=== PATIENT | female | born 1975 | race African-American/Black ===

== ENCOUNTER 2017-07-12 20:44 | Emergency (ER) | payer MEDICAID ==
[~2017-07-12] VITALS: Ht 157.5 cm; Wt 122.5 kg
[~2017-07-12 20:44] MED LIST: ALBUTEROL SULF8.5 GM INH; IBUPROFEN200 M3 PO; NORCO 5-325 TA1 EACH ORAL; PREDNISONE20 MG ORAL; SINGULAIR10 MG ORAL; STOOL SOFTENER50 M1 PO; ZITHROMAX250 MG ORAL
[2017-07-12 21:10] VITALS: BP 154/98
[2017-07-12 21:20] VITALS: BP 148/88
--- NOTE | 2017-07-12 21:24 | Emergency Room Report ---
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 She has had a spontaneous vaginal delivery at [facility] a week ago. She had some fluid retention from her . Blood pressure was high also. She is currently taking labetalol and Lasix 20 mg every other day. She was just released a week ago. Said she had an echocardiogram of her heart and was told was fine and was discharged after 3 days in the hospital. She went back to [facility] 2 days ago because of fluid retention. They then placed on Lasix 20 mg every other day. Blood work was fine. Chest x-ray was normal per patient. She came back because the Lasix is not working. She still have fluid retention. Worse when she walks. No fever chills but no shortness of breath. Denies any other complaint. Allergies: Coded Allergies: No Known Allergies (Unverified , 11/27/14) Patient History Past Medical History: see triage record, old chart reviewed, HTN Past Surgical History: other Pertinent Family History: none Social History: Denies: smoking Last Menstrual Period: Delivered baby 1 week ago Now: No Immunizations: other Reviewed Nursing Documentation: PMH: Agreed, PSxH: Agreed Nursing Documentation-PMH Past Medical History: No History, Except For Hx Cardiac Problems: Yes - CHF Hx Hypertension: Yes Hx COPD: No - Bronchitis Hx Cancer: No Hx Gastrointestinal Problems: No Review of Systems Eye: Denies: eye pain, blurred vision ENT: Denies: ear pain, nose congestion, throat swelling Respiratory: Denies: cough, shortness of breath Cardiovascular: Denies: chest pain, palpitations Gastrointestinal: Denies: abdominal pain, diarrhea, nausea, vomiting Musculoskeletal: Reports: other - Edema, Denies: back pain, joint pain Skin: Denies: rash Neurological: Denies: headache, numbness Endocrine: Denies: increased thirst, increased urine Hematologic/Lymphatic: Denies: easy bruising All Other Systems: negative except mentioned in HPI Physical Exam Vital Signs Date Time Temp Pulse Resp B/P (MAP) Pulse Ox O2 Delivery O2 Flow Rate FiO2 07/12/17 21:02 98.7 98 17 151/98 97 Room Air 98.8 vitals with high blood pressure Sp02 EP Interpretation: reviewed, normal General Appearance: well appearing, no apparent distress, alert, obese Head: normocephalic, atraumatic Eyes: bilateral eye PERRL, bilateral eye EOMI ENT: hearing grossly normal, normal pharynx Neck: full range of motion, supple, no meningismus Respiratory: chest non-tender, lungs clear, normal breath sounds Cardiovascular #1: regular rate, rhythm, no murmur Gastrointestinal: normal bowel sounds, non tender, no mass, no organomegaly, no bruit, non-distended Musculoskeletal: back normal, gait/station normal, normal range of motion, swelling - 2+ edema Psychiatric: mood/affect normal Skin: warm/dry Medical Decision Making Diagnostic Impression: Primary Impression: Peripheral edema ER Course Patient presents with peripheral edema. Clinically no evidence of CHF. I will order blood work and IV Lasix. Patient eloped without staff now. We checked the waiting room and outside and there's nobody care. No one in the bathroom. Patient again eloped. Last Vital Signs Date Time Temp Pulse Resp B/P (MAP) Pulse Ox O2 Delivery O2 Flow Rate FiO2 07/12/17 21:02 98.7 98 17 151/98 97 Room Air 98.8 Status: unchanged Disposition: ELOPED Condition: Stable YOHANA BLANCA M.D. Jul 12, 2017 21:23
== END 2017-07-12 21:50 | disposition left against medical advice (07) ==
LOC: MERGE 21:30 → EMR 21:30
DX: O90.89 Other complications of the puerperium, not elsewhere classified (principal); R60.9 Edema, unspecified
CPT/HCPCS: 99281

== ENCOUNTER 2017-07-14 02:03 | Inpatient (IN) | payer MEDICAID ==
[~2017-07-14] VITALS: Ht 157.5 cm; Wt 117.2 kg
[2017-07-14] VITALS (10 sets, daily range): BP systolic 108–160; BP diastolic 71–113
--- NOTE | 2017-07-14 02:27 | Emergency Room Report ---
History of Present Illness General Chief Complaint: General Complaint Source: Patient Present Illness HPI 42YOF walked in with chief complaint of irregular HR, worse when she lies on left side. Associated with leg swelling as well. Denies chest pain, SOB, palpitations Just "feels funny." States she had delivery 1 week ago and was told to take lasix every other day for ? cardiomyopathy. She took lasix yesterday but states "its not working because Im not peeing enough" but also endorses "my mouth is dry." Patient was here last night but eloped before workup could be done Per Dr Leal's note, she had had normal blood work and CXR at [facility] 2 days ago. Allergies: Coded Allergies: No Known Allergies (Unverified , 11/27/14) Patient History Past Medical History: other - see HPI Past Surgical History: none Pertinent Family History: none Social History: Denies: smoking, alcohol use, drug use Last Menstrual Period: recently gave Now: No Immunizations: UTD Reviewed Nursing Documentation: PMH: Agreed, PSxH: Agreed Nursing Documentation-PMH Hx Cardiac Problems: Yes - CHF Hx Hypertension: Yes Hx COPD: No - Bronchitis Review of Systems All Other Systems: negative except mentioned in HPI Physical Exam Vital Signs Date Time Temp Pulse Resp B/P (MAP) Pulse Ox O2 Delivery O2 Flow Rate FiO2 07/14/17 02:05 98.5 107 18 150/90 9 98.4 Sp02 EP Interpretation: reviewed, normal General Appearance: normal inspection, well appearing, no apparent distress, alert, GCS 15, non-toxic, obese Head: normocephalic, atraumatic Eyes: bilateral eye PERRL, bilateral eye EOMI ENT: normal ENT inspection, hearing grossly normal, normal pharynx, no angioedema, normal voice, TMs + canals normal, uvula midline, moist mucus membranes Neck: normal inspection, full range of motion, supple, thyroid normal, no meningismus, no bony tend Respiratory: normal inspection, lungs clear, normal breath sounds, no rhonchi, no respiratory distress, no retraction, no accessory muscle use, no wheezing, speaking full sentences Cardiovascular #1: regular rate, rhythm, no edema, no JVD, normal capillary refill Gastrointestinal: normal inspection, normal bowel sounds, non tender, soft, no mass, no peritonitis, non-distended, no guarding, no hernia, no pulsatile mass Genitourinary: no CVA tenderness Musculoskeletal: normal inspection, back normal, normal range of motion, no calf tenderness, pelvis stable, Craig's Sign negative, other - +1 pitting edema L>R Neurologic: normal inspection, alert, oriented x3, responsive, obgyn specialist III-XII nml as tested, motor strength/tone normal, cerebellar normal, normal gait, speech normal Psychiatric: normal inspection, judgement/insight normal, mood/affect normal, no suicidal/homicidal ideation, no delusions Skin: normal inspection, normal color, no rash Lymphatic: normal inspection, no adenopathy Medical Decision Making Diagnostic Impression: Primary Impression: Peripheral edema Additional Impressions: Pre-eclampsia, UTI (urinary tract infection) Qualified Codes: N30.01 - Acute cystitis with hematuria ER Course VSS with SBP>150 and DBP>90 4+ protein, elevated LFTs, AST/ALT 86/125 per uptodate, meets criteria for pre-eclampsia Was given labetolol 20mg with improvement in BP to 130/89 No seizures, no AMS or headache Tele admit to Dr Reynolds as per insurance Dr Alison douglas, endorsed to Dr Guidry at 428am for tele admit Abs given for UTI EKG Diagnostic Results Rate: normal Rhythm: NSR ST Segments: no acute changes ASA given to the pt in ED: No Rhythm Strip Diag. Results EP Interpretation: yes Rate: 90 Rhythm: NSR, no PVC's, no ectopy Last Vital Signs Date Time Temp Pulse Resp B/P (MAP) Pulse Ox O2 Delivery O2 Flow Rate FiO2 07/14/17 02:05 98.5 107 18 150/90 9 98.4 Status: improved Disposition: ADMITTED INPATIENT Condition: Serious MANAN OTTO M.D. Jul 14, 2017 02:27
[2017-07-14 02:51] LABS: BASOPHILS % (AUTO) 0.5 % (0.0-2.0); EOSINOPHILS % (AUTO) 0.6 % (0.0-3.0); HEMATOCRIT 38.6 % (37.0-47.0); HEMOGLOBIN 12.2 G/DL (12.0-16.0); LYMPHOCYTES % (AUTO) 33.3 % (20.0-45.0); MEAN CORPUSCULAR VOLUME 90 FL (80-99); MONOCYTES % (AUTO) 5.9 % (1.0-10.0); NEUTROPHILS % (AUTO) 59.8 % (45.0-75.0); PLATELET COUNT 208 K/UL (150-450); RED BLOOD COUNT 4.26 M/UL (4.20-5.40); RED CELL DISTRIBUTION WIDTH 16.1 % (11.6-14.8); WHITE BLOOD COUNT 5.1 K/UL (4.8-10.8)
[2017-07-14 03:01] LABS: ANION GAP 6 mmol/L (5-15); BLOOD UREA NITROGEN 17 mg/dL (7-18); CALCIUM 7.8 MG/DL (8.5-10.1); CARBON DIOXIDE 27 MMOL/L (21-32); CHLORIDE 106 MMOL/L (98-107); POTASSIUM 3.5 MMOL/L (3.5-5.1); SODIUM 139 MMOL/L (136-145)
[2017-07-14 03:05] LABS: ALANINE AMINOTRANSFERASE 125 U/L (12-78); ALBUMIN 1.9 G/DL (3.4-5.0); ALBUMIN/GLOBULIN RATIO 0.4 (1.0-2.7); ALKALINE PHOSPHATASE 113 U/L (46-116); ASPARTATE AMINO TRANSFERASE 86 U/L (15-37); BILIRUBIN, URINE NEGATIVE (NEGATIVE); BILIRUBIN,TOTAL 0.2 MG/DL (0.2-1.0); GLUCOSE, URINE (UA) NEGATIVE (NEGATIVE); KETONES,URINE NEGATIVE (NEGATIVE); LEUKOCYTE ESTERASE ,URINE 2+ (NEGATIVE); NITRITE,URINE POSITIVE (NEGATIVE); PH,URINE 6.5 (4.5-8.0); PROTEIN,URINE 4+ (NEGATIVE); UROBILINOGEN,URINE NORMAL MG/DL (0.0-1.0)
[2017-07-14 03:19] LABS: COLOR,URINE YELLOW
[2017-07-14 03:20] LABS: APPEARANCE,URINE CLOUDY
[2017-07-14] MEDS ORDERED: Labetalol 5mg/ml 20ml vial IV ONE (03:45)
[2017-07-14] MEDS ORDERED: Piperacillin/Tazobactam 3.375 GM in NS 110 ML IVPB ONE (04:30)
[2017-07-14] MEDS ORDERED: Zosyn 3.375gm inj ONE (04:31)
[2017-07-14] MEDS ORDERED: Labetalol 5mg/ml 20ml vial IV PRN (05:30)
[2017-07-14] MEDS ORDERED: Zolpidem 5mg tab ORAL PRN (05:30)
[2017-07-14] MEDS ORDERED: Acetaminophen 650 MG SUPP RECTAL PRN ×2 (05:30)
[2017-07-14] MEDS ORDERED: Miralax 17gm pkt ORAL PRN (05:30)
[2017-07-14] MEDS ORDERED: FUROSEMIDE20 M1 ORAL (09:50)
[2017-07-14] MEDS ORDERED: FERROUS SULFAT325 MG PO (09:50)
[2017-07-14] MEDS ORDERED: PROAIR HFA8.5 GM (09:50)
[2017-07-14] MEDS ORDERED: LABETALOL HCL200 MG PO (09:50)
[2017-07-14] MEDS ORDERED: PRENATAL VITAM1 EAC3 PO (09:50)
[2017-07-14] MEDS: cefTRIAXone 1 GM in NS 55 ML IVPB SCH (11:35)
[2017-07-14] MEDS: Montelukast 10mg tablet ORAL SCH (13:04)
[2017-07-14] MEDS: Labetalol 200mg tab ORAL SCH ×2 (13:10→17:27)
[2017-07-14 13:33] LABS: ALANINE AMINOTRANSFERASE 117 U/L (12-78); ALBUMIN 1.8 G/DL (3.4-5.0); ALKALINE PHOSPHATASE 104 U/L (46-116); ASPARTATE AMINO TRANSFERASE 73 U/L (15-37); BILIRUBIN,DIRECT < 0.1 MG/DL (0.0-0.3); BILIRUBIN,TOTAL 0.2 MG/DL (0.2-1.0)
[2017-07-14] MEDS: Azithromycin 500 MG in D5W 275 ML IV SCH (16:19)
--- NOTE | 2017-07-14 19:23 | Cardiology Progress Note ---
Assessment/Plan Assessment/Plan [id number] agree with diuretic and labatolol for now need to exclude post cm may need hydralazine avoid nsaids keep in mind she will b breast feeding abn lf noted ut bili and plt are normal not meet criterial for hellp Objective Last 24 Hour Vital Signs Date Time Temp Pulse Resp B/P (MAP) Pulse Ox O2 Delivery O2 Flow Rate FiO2 07/14/17 17:27 84 108/71 07/14/17 16:00 86 07/14/17 16:00 98.2 84 18 108/71 99 Room Air 07/14/17 13:10 96 147/104 07/14/17 12:00 96.4 93 18 147/104 99 Room Air 07/14/17 12:00 96 07/14/17 09:08 94 07/14/17 08:45 97.7 88 20 145/101 99 Room Air 07/14/17 08:40 98.3 86 20 139/85 100 Room Air 98.3 07/14/17 07:30 98.3 86 20 139/85 100 Room Air 98.3 07/14/17 06:20 98.2 91 14 148/113 100 98.2 07/14/17 05:25 98.1 95 14 137/99 99 98.1 07/14/17 04:25 98.4 98 16 130/89 100 98.4 07/14/17 03:41 88 155/97 07/14/17 03:30 98.6 97 16 160/98 99 98.6 07/14/17 02:35 98.4 102 18 150/90 99 98.4 07/14/17 02:05 98.5 107 18 150/90 98 98.4 Intake and Output 07/13/17 07/14/17 19:00 07:00 Intake Total 110 ml Balance 110 ml IV Total 110 ml # Voids 3 # Bowel Movements 2 Laboratory Tests Test 07/14/17 02:35 07/14/17 12:20 White Blood Count 5.1 K/UL (4.8-10.8) Red Blood Count 4.26 M/UL (4.20-5.40) Hemoglobin 12.2 G/DL (12.0-16.0) Hematocrit 38.6 % (37.0-47.0) Mean Corpuscular Volume 90 FL (80-99) Mean Corpuscular Hemoglobin 28.7 PG (27.0-31.0) Mean Corpuscular Hemoglobin Concent 31.7 G/DL (32.0-36.0) L Red Cell Distribution Width 16.1 % (11.6-14.8) H Platelet Count 208 K/UL (150-450) Mean Platelet Volume 7.3 FL (6.5-10.1) Neutrophils (%) (Auto) 59.8 % (45.0-75.0) Lymphocytes (%) (Auto) 33.3 % (20.0-45.0) Monocytes (%) (Auto) 5.9 % (1.0-10.0) Eosinophils (%) (Auto) 0.6 % (0.0-3.0) Basophils (%) (Auto) 0.5 % (0.0-2.0) Urine Color Yellow Urine Appearance Cloudy Urine pH 6.5 (4.5-8.0) Urine Specific [address] 1.015 (1.005-1.035) Urine Protein 4+ (NEGATIVE) H Urine Glucose (UA) Negative (NEGATIVE) Urine Ketones Negative (NEGATIVE) Urine Occult Blood 5+ (NEGATIVE) H Urine Nitrite Positive (NEGATIVE) H Urine Bilirubin Negative (NEGATIVE) Urine Urobilinogen Normal MG/DL (0.0-1.0) Urine Leukocyte Esterase 2+ (NEGATIVE) H Urine RBC Tntc /HPF (0 - 2) H Urine WBC 60-80 /HPF (0 - 2) H Urine Squamous Epithelial Cells Few /LPF (NONE/OCC) Urine Bacteria Many /HPF (NONE) H Sodium Level 139 MMOL/L (136-145) Potassium Level 3.5 MMOL/L (3.5-5.1) Chloride Level 106 MMOL/L (98-107) Carbon Dioxide Level 27 MMOL/L (21-32) Anion Gap 6 mmol/L (5-15) Blood Urea Nitrogen 17 mg/dL (7-18) Creatinine 1.0 MG/DL (0.55-1.30) Estimat Glomerular Filtration Rate > 60 mL/min (>60) Glucose Level 132 MG/DL (74-106) H Calcium Level 7.8 MG/DL (8.5-10.1) L Total Bilirubin 0.2 MG/DL (0.2-1.0) 0.2 MG/DL (0.2-1.0) Aspartate Amino Transf (AST/SGOT) 86 U/L (15-37) H 73 U/L (15-37) H Alanine Aminotransferase (ALT/SGPT) 125 U/L (12-78) H 117 U/L (12-78) H Alkaline Phosphatase 113 U/L (46-116) 104 U/L (46-116) Troponin I 0.012 ng/mL (0.000-0.056) 0.008 ng/mL (0.000-0.056) Total Protein 6.3 G/DL (6.4-8.2) L 6.1 G/DL (6.4-8.2) L Albumin 1.9 G/DL (3.4-5.0) L 1.8 G/DL (3.4-5.0) L Globulin 4.4 g/dL Albumin/Globulin Ratio 0.4 (1.0-2.7) L Lipase 211 U/L (73-393) Direct Bilirubin < 0.1 MG/DL (0.0-0.3) Pro-B-Type Natriuretic Peptide 1331 pg/mL (0-125) H Thyroid Stimulating Hormone (TSH) 0.890 uiU/mL (0.358-3.740) BROOK PARKER Jul 14, 2017 19:23
--- NOTE | 2017-07-14 23:00 | Consultation ---
DATE OF CONSULTATION: 07/14/2017 INFECTIOUS DISEASES CONSULTATION CONSULTING PHYSICIAN: Marcello Camarillo M.D. REFERRING PHYSICIANS: 1. Chago Reynolds M.D. 2. Brea Felix M.D. REASON FOR CONSULTATION: Evaluation of UTI, possible pneumonia, antibiotic management. HISTORY OF PRESENT ILLNESS: The patient is a 42-year-old female, who had a vaginal delivery on 07/04/2017. The patient was admitted here with the chief complaint of lower abdominal pain, post preeclampsia. Infectious Diseases consultation has been requested for evaluation of the patient for cough and dysuria. PAST MEDICAL HISTORY: 1. Hypertension. 2. Asthma. 3. Obesity. 4. Fibromyalgia. 5. Depression/anxiety. 6. ? cardiomyopathy. MEDICATIONS: Rocephin. ALLERGIES: No known drug allergies. SOCIAL HISTORY: The patient lives with the family. FAMILY HISTORY: Not contributing. REVIEW OF SYSTEMS: HEENT: No recent change in vision or hearing. PULMONARY: Cough with sputum production ( ). CARDIOVASCULAR: No chest pain. ABDOMEN: The patient has left lower pelvic pain. MUSCULOSKELETAL: Tenderness, also has pain. GENITOURINARY: As mentioned above. PHYSICAL EXAMINATION: VITAL SIGNS: Temperature 98 degrees, pulse 86, respiratory rate 18, and blood pressure 144/101. HEENT: No pale conjunctivae. No icterus. NECK: No lymphadenopathy. CHEST: Clear. HEART: S1 and S2. ABDOMEN: Soft, obese, mild tenderness in the suprapubic area towards the left. MUSCULOSKELETAL: No pain in extremity. NEUROLOGIC: Awake and alert. LABORATORY AND DIAGNOSTIC DATA: White blood cells 5.1, hemoglobin 12, and platelets 208. UA shows too numerous to count red blood cells, 60-80 white blood cells. BUN 17 and creatinine 1. AST 86, ALT 125, and alkaline phosphatase 113. Urine culture is pending. ASSESSMENT: The patient is a 42-year-old female with; 1. Community-acquired pneumonia/bronchitis. The patient has sputum production and cough, rule out flu. 2. Dysuria, possible urinary tract infection, history of Fiore catheter placement. 3. Hematuria probably due to vaginal bleed. 4. Increase in liver function tests due to preeclampsia. 5. Left pelvic pain. We will order a CT of the pelvis for further evaluation and rule out possibility of ovarian abscess. 6. Fiore catheter placement. 7. Hematuria due to vaginal bleed. 8. Abnormal liver function tests due to preeclampsia. 9. Left pelvic pain, rule out abscess. PLAN: 1. We will continue the patient on Rocephin for urinary tract infection, add Zithromax for bronchitis. 2. Flu screening. 3. Blood culture and urine culture. 4. CT of pelvis with contrast. 5. Based on the patient's clinical course and laboratories, we will do further recommendations. Thank you for this consultation. I will follow the patient with you during the hospitalization. Marcello Camarillo M.D. DR: SYLVESTER JOB#: [id number] CC:
--- NOTE | 2017-07-14 23:18 | History and Physical ---
History of Present Illness General Date patient seen: Jul 14, 2017 Time patient seen: 10:00 Reason for Hospitalization: CHF, HTN Present Illness HPI 42y/o female with pmh of HTN, pre-eclampsia, recent abt 10 days ago at [place] who presents with SOB, BLE swelling, palpitations. Pt states she was diagnosed w/ preeclampsia prior to her deliver. She said after delivery she had worsening of BPs, leg swelling, SOB. She was diagnosed w/ CHF. She was recently at outside hospital and was treated with diuretics and discharged. Pt cont to c/ o worsening b/l leg swelling, SOB, palpitations. Denies chest pain, f/c, n/v, d/ c, abd pain, dysuria. She has been on lasix every other day but feels it is not working. Denies PND, orthopnea. Allergies: Coded Allergies: No Known Allergies (Unverified , 08/20/14) Medication History Scheduled Azithromycin* (Zithromax*), 250 MG ORAL DAILY Cephalexin* (Keflex*), 500 MG ORAL EVERY 6 HOURS Ferrous Sulfate* (Ferrous Sulfate*), 325 MG PO DAILY, (Reported) Furosemide* (Lasix*), 20 MG ORAL DAILY Hydralazine Hcl* (Hydralazine Hcl*), 25 MG ORAL Q6HR Montelukast Sodium* (Singulair*), 10 MG ORAL DAILY Montelukast Sodium* (Singulair*), Unknown Dose ORAL DAILY, (Reported) Vit/Iron Fumarate/Fa ( Vitamins Tablet), 1 TAB PO DAILY, ( Reported) Scheduled PRN Albuterol Sulfate* (Albuterol Sulfate Mdi*), 2 PUFF INH Q4H PRN for Shortness of Breath Albuterol Sulfate* (Albuterol Sulfate Mdi*), 2 PUFF INH Q6H PRN for Shortness of Breath, (Reported) Hydrocodone Bit/Acetaminophen 5-325* ([place] 5-325*), 1 TAB ORAL Q6H PRN for For Pain Miscellaneous Medications Albuterol Sulfate* (Proair Hfa*), (Reported) Docusate Sodium (Stool Softener), Unknown Dose PO, (Reported) Ibuprofen (Ibuprofen), Unknown Dose PO, (Reported) Patient History History Provided By: Patient, Medical Record Healthcare decision maker Resuscitation status Full Code Advanced Directive on File Past Medical/Surgical History Past Medical/Surgical History: (1) Preeclampsia (2) HTN (hypertension) Family History Family History: Patient reports no known family medical history. Social History Social History: (1) No significant social history Review of Systems Constitutional: Reports: no symptoms Eye: Reports: no symptoms ENT: Reports: no symptoms Respiratory: Reports: cough, shortness of breath Cardiovascular: Reports: palpitations Gastrointestinal: Reports: no symptoms Genitourinary: Reports: no symptoms Musculoskeletal: Reports: no symptoms Skin: Reports: no symptoms Psychiatric: Reports: no symptoms Neurological: Reports: no symptoms Endocrine: Reports: no symptoms Hematologic/Lymphatic: Reports: no symptoms Physical Exam Physical Exam Narrative General: alert, cooperative, no distress, appears stated age, obese Head: normocephalic, without obvious abnormality, atraumatic Eyes: conjunctivae/corneas clear. PERRL, EOM's intact Throat: lips, mucosa, and tongue normal. MMM Neck: supple, symmetrical, trachea midline, and +JVD Lungs: mild bibasilar crackles Heart: regular rate and rhythm, S1, S2 normal, no murmur, click, rub or gallop Abdomen: soft, non-tender, non-distended, bowel sounds normal; Extremities: extremities normal, atraumatic, no cyanosis, 1-2+ pitting edema to BLE knees Pulses: 2+ and symmetric Skin: skin color, texture, turgor normal; no rashes or lesions Neurologic: grossly normal, no focal deficits Last 24 Hour Vital Signs Date Time Temp Pulse Resp B/P (MAP) Pulse Ox O2 Delivery O2 Flow Rate FiO2 07/14/17 20:00 97.6 100 19 132/92 94 Room Air 07/14/17 20:00 94 07/14/17 17:27 84 108/71 07/14/17 16:00 86 07/14/17 16:00 98.2 84 18 108/71 99 Room Air 07/14/17 13:10 96 147/104 07/14/17 12:00 96.4 93 18 147/104 99 Room Air 07/14/17 12:00 96 07/14/17 09:08 94 07/14/17 08:45 97.7 88 20 145/101 99 Room Air 07/14/17 08:40 98.3 86 20 139/85 100 Room Air 98.3 07/14/17 07:30 98.3 86 20 139/85 100 Room Air 98.3 07/14/17 06:20 98.2 91 14 148/113 100 98.2 07/14/17 05:25 98.1 95 14 137/99 99 98.1 07/14/17 04:25 98.4 98 16 130/89 100 98.4 07/14/17 03:41 88 155/97 07/14/17 03:30 98.6 97 16 160/98 99 98.6 07/14/17 02:35 98.4 102 18 150/90 99 98.4 07/14/17 02:05 98.5 107 18 150/90 98 98.4 Intake and Output 07/13/17 07/14/17 19:00 07:00 Intake Total 110 ml Balance 110 ml IV Total 110 ml # Voids 3 # Bowel Movements 2 Laboratory Tests Test 07/14/17 02:35 07/14/17 12:20 White Blood Count 5.1 K/UL (4.8-10.8) Red Blood Count 4.26 M/UL (4.20-5.40) Hemoglobin 12.2 G/DL (12.0-16.0) Hematocrit 38.6 % (37.0-47.0) Mean Corpuscular Volume 90 FL (80-99) Mean Corpuscular Hemoglobin 28.7 PG (27.0-31.0) Mean Corpuscular Hemoglobin Concent 31.7 G/DL (32.0-36.0) L Red Cell Distribution Width 16.1 % (11.6-14.8) H Platelet Count 208 K/UL (150-450) Mean Platelet Volume 7.3 FL (6.5-10.1) Neutrophils (%) (Auto) 59.8 % (45.0-75.0) Lymphocytes (%) (Auto) 33.3 % (20.0-45.0) Monocytes (%) (Auto) 5.9 % (1.0-10.0) Eosinophils (%) (Auto) 0.6 % (0.0-3.0) Basophils (%) (Auto) 0.5 % (0.0-2.0) Urine Color Yellow Urine Appearance Cloudy Urine pH 6.5 (4.5-8.0) Urine Specific [place] 1.015 (1.005-1.035) Urine Protein 4+ (NEGATIVE) H Urine Glucose (UA) Negative (NEGATIVE) Urine Ketones Negative (NEGATIVE) Urine Occult Blood 5+ (NEGATIVE) H Urine Nitrite Positive (NEGATIVE) H Urine Bilirubin Negative (NEGATIVE) Urine Urobilinogen Normal MG/DL (0.0-1.0) Urine Leukocyte Esterase 2+ (NEGATIVE) H Urine RBC Tntc /HPF (0 - 2) H Urine WBC 60-80 /HPF (0 - 2) H Urine Squamous Epithelial Cells Few /LPF (NONE/OCC) Urine Bacteria Many /HPF (NONE) H Sodium Level 139 MMOL/L (136-145) Potassium Level 3.5 MMOL/L (3.5-5.1) Chloride Level 106 MMOL/L (98-107) Carbon Dioxide Level 27 MMOL/L (21-32) Anion Gap 6 mmol/L (5-15) Blood Urea Nitrogen 17 mg/dL (7-18) Creatinine 1.0 MG/DL (0.55-1.30) Estimat Glomerular Filtration Rate > 60 mL/min (>60) Glucose Level 132 MG/DL (74-106) H Calcium Level 7.8 MG/DL (8.5-10.1) L Total Bilirubin 0.2 MG/DL (0.2-1.0) 0.2 MG/DL (0.2-1.0) Aspartate Amino Transf (AST/SGOT) 86 U/L (15-37) H 73 U/L (15-37) H Alanine Aminotransferase (ALT/SGPT) 125 U/L (12-78) H 117 U/L (12-78) H Alkaline Phosphatase 113 U/L (46-116) 104 U/L (46-116) Troponin I 0.012 ng/mL (0.000-0.056) 0.008 ng/mL (0.000-0.056) Total Protein 6.3 G/DL (6.4-8.2) L 6.1 G/DL (6.4-8.2) L Albumin 1.9 G/DL (3.4-5.0) L 1.8 G/DL (3.4-5.0) L Globulin 4.4 g/dL Albumin/Globulin Ratio 0.4 (1.0-2.7) L Lipase 211 U/L (73-393) Direct Bilirubin < 0.1 MG/DL (0.0-0.3) Pro-B-Type Natriuretic Peptide 1331 pg/mL (0-125) H Thyroid Stimulating Hormone (TSH) 0.890 uiU/mL (0.358-3.740) Height (Feet): 5 Height (Inches): 2.00 Weight (Pounds): 270 Medications Current Medications Medications (Trade) Dose Ordered Sig/Quinn Route PRN Reason Start Time Stop Time Status Last Admin Dose Admin Acetaminophen (Tylenol) 650 mg Q4H PRN ORAL Mild Pain (Pain Scale 1-3) 07/14/17 05:30 08/13/17 05:29 07/14/17 11:55 Acetaminophen (Tylenol) 650 mg Q4H PRN ORAL fever 07/14/17 05:30 08/13/17 05:29 Acetaminophen (Tylenol) 650 mg Q4H PRN RECTAL Mild Pain (Pain Scale 1-3) 07/14/17 05:30 08/13/17 05:29 Acetaminophen (Tylenol) 650 mg Q4H PRN RECTAL fever 07/14/17 05:30 08/13/17 05:29 Azithromycin 500 mg/Dextrose 275 ml @ 275 mls/hr Q24HRS IV 07/14/17 13:00 07/20/17 13:59 07/14/17 16:19 Bisacodyl (Dulcolax) 10 mg DAILYPRN PRN RECTAL Constipation 07/14/17 05:30 08/13/17 05:29 Ceftriaxone Sodium 1 gm/ Sodium Chloride 55 ml @ 110 mls/hr Q24H IVPB 07/14/17 06:00 07/21/17 05:59 07/14/17 11:35 Dextrose (Dextrose 50%) STAT PRN IV Hypoglycemia 07/14/17 05:30 08/13/17 05:29 Diphenhydramine HCl (Benadryl) 25 mg Q6H PRN ORAL Itching/Pruritis 07/14/17 05:30 08/13/17 05:29 Ferrous Sulfate (Feosol) 325 mg DAILY ORAL 07/14/17 12:15 08/13/17 12:14 07/14/17 13:10 Furosemide (Lasix) 20 mg ONCE ONCE IV 07/15/17 08:00 07/15/17 08:01 Labetalol HCl (Normodyne) 100 mg Q12H PRN ORAL sbp/dbp greater than 150/90 07/14/17 19:30 08/13/17 19:29 Labetalol HCl (Normodyne) 200 mg BID ORAL 07/14/17 12:15 08/13/17 12:14 07/14/17 13:10 Montelukast Sodium (Singulair) 10 mg DAILY ORAL 07/14/17 12:15 08/13/17 12:14 07/14/17 13:04 Polyethylene Glycol (Miralax) 17 gm DAILYPRN PRN ORAL Constipation 07/14/17 05:30 08/13/17 05:29 Zolpidem Tartrate (Ambien) 5 mg DAILYPRN PRN ORAL Insomnia 07/14/17 05:30 07/21/17 05:29 Assessment/Plan Problem List: (1) cardiomyopathy 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 SNOMED: 26579982 (2) Acute systolic (congestive) heart failure ICD Codes: I50.21 - Acute systolic (congestive) heart failure SNOMED: 95353184, 464309572 (3) HTN (hypertension) ICD Codes: I10 - Essential (primary) hypertension SNOMED: 78757243 Status: stable Assessment/Plan Admit to tele Trend trop/EKG Check TTE Cardiology consulted BP control w/ labetolol Pt is lactating female so caution meds Empiric ceftriaxone for UTI F/u urine culture Strict I/O's, daily weights Monitor lytes closely CHF education FULL CODE DVT ppx: SCDs, HSQ D/w pt, RN, SW/, Cardiology regarding mgmt and dispo Brea Felix M.D. Jul 14, 2017 23:18
[2017-07-15] VITALS: BP 123/74
[2017-07-15 04:00] VITALS: BP 133/91
[2017-07-15] MEDS: cefTRIAXone 1 GM in NS 55 ML IVPB SCH (07:42)
[2017-07-15 08:00] VITALS: BP 138/106
--- NOTE | 2017-07-15 08:25 | Cardiology Report ---
APPROVED REPORT EXAM: Two-dimensional and M-mode echocardiogram with Doppler and color Doppler. INDICATION Hypertension/HCVD M-Mode DIMENSIONS IVSd1.3 (0.7-1.1cm)Left Atrium (MM)4.7 (1.6-4.0cm) LVDd6.0 (3.5-5.6cm)Aortic Root2.5 (2.0-3.7cm) PWd1.1 (0.7-1.1cm)Aortic Cusp Exc.2.2 (1.5-2.0cm) LVDs4.8 (2.5-4.0cm) PWs1.7 cm Mild left ventricular enlargement. Global left ventricular hypokinesia with left ventricular ejection fraction estimated to be 20-25 %. Ischemic cardiomyopathy cannot be excluded. Mild left ventricular hypertrophy. Possible large pleural effusion. Moderate left atrial enlargement. Mild right ventricular enlargement. Right atrial chamber size is within normal limits. Focal aortic valve sclerosis with adequate cusp excursion. Mildly thickened mitral valve leaflets with normal excursion. Mild mitral annulus and aortic root calcification. Normal pulmonic valve structure. Normal tricuspid valve structure. IVC dilated at 2.3 cm with physiologic collapse suggestive of increased RA pressure. A color flow and spectral Doppler study was performed and revealed: No aortic regurgitation. Mild to moderate mitral regurgitation. Mitral inflow indicates pseudo-normal pattern, implying moderately elevated left atrial pressure (Grade II ). Moderate tricuspid regurgitation. Tricuspid systolic velocities suggests peak right ventricular systolic pressure of 54 mmHg, consistent with moderate pulmonary hypertension. Mild pulmonic regurgitation present.
--- NOTE | 2017-07-15 08:33 | Cardiology Report ---
APPROVED REPORT EKG Measurement Heart [id number] Sinus tachycardia Biatrial enlargement Nonspecific ST and T wave abnormality Abnormal ECG
[2017-07-15 09:00] LABS: BASOPHILS % (AUTO) 0.6 % (0.0-2.0); EOSINOPHILS % (AUTO) 0.5 % (0.0-3.0); HEMATOCRIT 37.5 % (37.0-47.0); HEMOGLOBIN 12.1 G/DL (12.0-16.0); LYMPHOCYTES % (AUTO) 27.9 % (20.0-45.0); MEAN CORPUSCULAR VOLUME 91 FL (80-99); MONOCYTES % (AUTO) 6.5 % (1.0-10.0); NEUTROPHILS % (AUTO) 64.5 % (45.0-75.0); PLATELET COUNT 227 K/UL (150-450); RED BLOOD COUNT 4.12 M/UL (4.20-5.40); RED CELL DISTRIBUTION WIDTH 16.6 % (11.6-14.8)
[2017-07-15] MEDS: Montelukast 10mg tablet ORAL SCH (09:09)
[2017-07-15] MEDS: Labetalol 200mg tab ORAL SCH (09:10)
[2017-07-15 09:35] LABS: ALANINE AMINOTRANSFERASE 106 U/L (12-78); ALBUMIN 1.8 G/DL (3.4-5.0); ALBUMIN/GLOBULIN RATIO 0.4 (1.0-2.7); ALKALINE PHOSPHATASE 96 U/L (46-116); ANION GAP 3 mmol/L (5-15); ASPARTATE AMINO TRANSFERASE 68 U/L (15-37); BILIRUBIN,TOTAL 0.3 MG/DL (0.2-1.0); BLOOD UREA NITROGEN 16 mg/dL (7-18); CALCIUM 7.8 MG/DL (8.5-10.1); CARBON DIOXIDE 28 MMOL/L (21-32); CHLORIDE 109 MMOL/L (98-107); CHOLESTEROL 124 MG/DL (< 200); HDL CHOLESTEROL 36 MG/DL (40-60); SODIUM 140 MMOL/L (136-145); TRIGLYCERIDES 138 MG/DL (30-150)
--- NOTE | 2017-07-15 09:54 | Infectious Diseases Prog Note ---
Assessment/Plan Assessment/Plan ASSESSMENT: The patient is a 42-year-old female with; Community-acquired pneumonia/bronchitis. rule out flu. UTI Dysuria History of Fiore catheter placement. Hematuria probably due to vaginal bleed Transaminitis improving due to preeclampsia. Left pelvic pain ro Abscess We will order a CT of the pelvis for further evaluation and rule out possibility of ovarian abscess. Hypertension. Asthma. Obesity. Fibromyalgia. Depression/anxiety. ? cardiomyopathy. PLAN: will continue the patient on Rocephin d# 2 ( UTI ) and Zithromax d# 2 ( bronchitis ) Flu screening. Blood culture and urine culture. CT of pelvis with contrast Subjective Allergies: Coded Allergies: No Known Allergies (Unverified , 08/20/14) Objective Vital Signs Last 24 Hour Vital Signs Date Time Temp Pulse Resp B/P (MAP) Pulse Ox O2 Delivery O2 Flow Rate FiO2 07/15/17 09:10 89 138/106 07/15/17 08:00 96.1 99 20 138/106 99 Room Air 07/15/17 08:00 89 07/15/17 04:00 88 07/15/17 04:00 96.9 88 18 133/91 95 Room Air 07/15/17 00:00 96.6 91 19 123/74 97 Room Air 07/15/17 00:00 91 07/14/17 20:00 97.6 100 19 132/92 94 Room Air 07/14/17 20:00 94 07/14/17 17:27 84 108/71 07/14/17 16:00 86 07/14/17 16:00 98.2 84 18 108/71 99 Room Air 07/14/17 13:10 96 147/104 07/14/17 12:00 96.4 93 18 147/104 99 Room Air 07/14/17 12:00 96 Height (Feet): 5 Height (Inches): 2.00 Weight (Pounds): 258 Microbiology Date/Time Source Procedure Growth Status 07/14/17 02:35 Urine,Clean Catch Urine Culture - Preliminary Gram Negative Bacillus 1 Resulted Laboratory Tests Test 07/14/17 12:20 07/15/17 07:40 Total Bilirubin 0.2 MG/DL (0.2-1.0) 0.3 MG/DL (0.2-1.0) Direct Bilirubin < 0.1 MG/DL (0.0-0.3) Aspartate Amino Transf (AST/SGOT) 73 U/L (15-37) H 68 U/L (15-37) H Alanine Aminotransferase (ALT/SGPT) 117 U/L (12-78) H 106 U/L (12-78) H Alkaline Phosphatase 104 U/L (46-116) 96 U/L (46-116) Troponin I 0.008 ng/mL (0.000-0.056) Pro-B-Type Natriuretic Peptide 1331 pg/mL (0-125) H Total Protein 6.1 G/DL (6.4-8.2) L 6.0 G/DL (6.4-8.2) L Albumin 1.8 G/DL (3.4-5.0) L 1.8 G/DL (3.4-5.0) L Thyroid Stimulating Hormone (TSH) 0.890 uiU/mL (0.358-3.740) White Blood Count 5.0 K/UL (4.8-10.8) Red Blood Count 4.12 M/UL (4.20-5.40) L Hemoglobin 12.1 G/DL (12.0-16.0) Hematocrit 37.5 % (37.0-47.0) Mean Corpuscular Volume 91 FL (80-99) Mean Corpuscular Hemoglobin 29.5 PG (27.0-31.0) Mean Corpuscular Hemoglobin Concent 32.4 G/DL (32.0-36.0) Red Cell Distribution Width 16.6 % (11.6-14.8) H Platelet Count 227 K/UL (150-450) Mean Platelet Volume 7.2 FL (6.5-10.1) Neutrophils (%) (Auto) 64.5 % (45.0-75.0) Lymphocytes (%) (Auto) 27.9 % (20.0-45.0) Monocytes (%) (Auto) 6.5 % (1.0-10.0) Eosinophils (%) (Auto) 0.5 % (0.0-3.0) Basophils (%) (Auto) 0.6 % (0.0-2.0) Sodium Level 140 MMOL/L (136-145) Potassium Level 4.0 MMOL/L (3.5-5.1) Chloride Level 109 MMOL/L (98-107) H Carbon Dioxide Level 28 MMOL/L (21-32) Anion Gap 3 mmol/L (5-15) L Blood Urea Nitrogen 16 mg/dL (7-18) Creatinine 1.0 MG/DL (0.55-1.30) Estimat Glomerular Filtration Rate > 60 mL/min (>60) Glucose Level 120 MG/DL (74-106) H Hemoglobin A1c Pending Calcium Level 7.8 MG/DL (8.5-10.1) L Magnesium Level 1.9 MG/DL (1.8-2.4) Globulin 4.2 g/dL Albumin/Globulin Ratio 0.4 (1.0-2.7) L Triglycerides Level 138 MG/DL (30-150) Cholesterol Level 124 MG/DL (< 200) LDL Cholesterol 72 mg/dL (<100) HDL Cholesterol 36 MG/DL (40-60) L Cholesterol/HDL Ratio 3.4 (3.3-4.4) Current Medications Medications (Trade) Dose Ordered Sig/Quinn Route PRN Reason Start Time Stop Time Status Last Admin Dose Admin Acetaminophen (Tylenol) 650 mg Q4H PRN ORAL Mild Pain (Pain Scale 1-3) 07/14/17 05:30 08/13/17 05:29 07/14/17 11:55 Acetaminophen (Tylenol) 650 mg Q4H PRN ORAL fever 07/14/17 05:30 08/13/17 05:29 Acetaminophen (Tylenol) 650 mg Q4H PRN RECTAL Mild Pain (Pain Scale 1-3) 07/14/17 05:30 08/13/17 05:29 Acetaminophen (Tylenol) 650 mg Q4H PRN RECTAL fever 07/14/17 05:30 08/13/17 05:29 Azithromycin 500 mg/Dextrose 275 ml @ 275 mls/hr Q24HRS IV 07/14/17 13:00 07/20/17 13:59 07/14/17 16:19 Bisacodyl (Dulcolax) 10 mg DAILYPRN PRN RECTAL Constipation 07/14/17 05:30 08/13/17 05:29 Ceftriaxone Sodium 1 gm/ Sodium Chloride 55 ml @ 110 mls/hr Q24H IVPB 07/14/17 06:00 07/21/17 05:59 07/15/17 07:42 Dextrose (Dextrose 50%) STAT PRN IV Hypoglycemia 07/14/17 05:30 08/13/17 05:29 Diphenhydramine HCl (Benadryl) 25 mg Q6H PRN ORAL Itching/Pruritis 07/14/17 05:30 08/13/17 05:29 Ferrous Sulfate (Feosol) 325 mg DAILY ORAL 07/14/17 12:15 08/13/17 12:14 07/15/17 09:10 Labetalol HCl (Normodyne) 100 mg Q12H PRN ORAL sbp/dbp greater than 150/90 07/14/17 19:30 08/13/17 19:29 Labetalol HCl (Normodyne) 200 mg BID ORAL 07/14/17 12:15 08/13/17 12:14 07/15/17 09:10 Montelukast Sodium (Singulair) 10 mg DAILY ORAL 07/14/17 12:15 08/13/17 12:14 07/15/17 09:09 Polyethylene Glycol (Miralax) 17 gm DAILYPRN PRN ORAL Constipation 07/14/17 05:30 08/13/17 05:29 Zolpidem Tartrate (Ambien) 5 mg DAILYPRN PRN ORAL Insomnia 07/14/17 05:30 07/21/17 05:29 MARIO KOEHLER M.D. Jul 15, 2017 09:54
[2017-07-15] MEDS ORDERED: Albuterol/Ipratropium 3ml neb HHN PRN (11:00)
--- NOTE | 2017-07-15 11:00 | Diagnostic Imaging Report ---
Indication: Pain, vaginal bleeding, recent vaginal delivery Technique: Patient given oral contrast. IV administration nonionic contrast. Spiral acquisitions obtained through the pelvis. Multiplanar reconstructions generated. Total dose length product 1011.29 mGycm. CTDIvol(s) 29.57 mGy. Dose reduction achieved using automated exposure control Comparison: Findings: There is a moderate amount image noise related to patient body habitus. The uterus is somewhat enlarged, slightly heterogeneous, consistent with state. No focal fluid or gas collections are demonstrated. The endometrium is mildly thickened, again no more than expected given recent delivery. No adnexal mass. No free or loculated pelvic fluid. Visualized bowel is unremarkable. There is some edema of the lumbar subcutaneous fat. The bladder is unremarkable. Impression: Enlarged uterus with mild endometrial thickening. No unusual features No evidence of abscess, endometritis, or other related complication Incidental finding of minimal lumbar subcutaneous edema The CT scanner at [facility] is accredited by the [employer] [employer] and the scans are performed using protocols designed to limit radiation exposure to as low as reasonably achievable to attain images of sufficient resolution adequate for diagnostic evaluation.
[2017-07-15 12:00] VITALS: BP 133/85
[2017-07-15] MEDS ORDERED: guaiFENesin DM 100mg/5ml ORAL PRN (14:00)
[2017-07-15] MEDS: Azithromycin 500 MG in D5W 275 ML IV SCH (14:06)
--- NOTE | 2017-07-15 14:09 | Cardiology Progress Note ---
Assessment/Plan Assessment/Plan post cardiomyopathy htn preclampsia edema need to dc labetalol start on hydralazine she breast feed cannot used acie or nitrates or coreg as is nursing but diuretic and hydralazine are ok will start on hydralazine 25 mg tid for now as is safe with na fluid restriction d/w pt need to see a cardiologists through her health plan after dc Subjective Cardiovascular: Denies: chest pain, irregular heart rate, lightheadedness, palpitations Respiratory: Denies: shortness of breath Gastrointestinal/Abdominal: Denies: abdominal pain Genitourinary: Denies: burning Objective Last 24 Hour Vital Signs Date Time Temp Pulse Resp B/P (MAP) Pulse Ox O2 Delivery O2 Flow Rate FiO2 07/15/17 12:00 87 07/15/17 12:00 96.3 93 19 133/85 98 Room Air 07/15/17 11:23 94 18 100 Room Air 21 07/15/17 11:12 94 18 100 Room Air 21 07/15/17 11:12 21 07/15/17 09:10 89 138/106 07/15/17 08:00 96.1 99 20 138/106 99 Room Air 07/15/17 08:00 89 07/15/17 04:00 88 07/15/17 04:00 96.9 88 18 133/91 95 Room Air 07/15/17 00:00 96.6 91 19 123/74 97 Room Air 07/15/17 00:00 91 07/14/17 20:00 97.6 100 19 132/92 94 Room Air 07/14/17 20:00 94 07/14/17 17:27 84 108/71 07/14/17 16:00 86 07/14/17 16:00 98.2 84 18 108/71 99 Room Air General Appearance: no apparent distress, alert Neck: supple Cardiovascular: normal rate, regular rhythm Respiratory/Chest: lungs clear, normal breath sounds Abdomen: non tender, soft Extremities: trace edema Intake and Output 07/14/17 07/15/17 19:00 07:00 Intake Total 1450 ml Balance 1450 ml Intake Oral 1450 ml # Voids 7 Laboratory Tests Test 07/15/17 07:40 White Blood Count 5.0 K/UL (4.8-10.8) Red Blood Count 4.12 M/UL (4.20-5.40) L Hemoglobin 12.1 G/DL (12.0-16.0) Hematocrit 37.5 % (37.0-47.0) Mean Corpuscular Volume 91 FL (80-99) Mean Corpuscular Hemoglobin 29.5 PG (27.0-31.0) Mean Corpuscular Hemoglobin Concent 32.4 G/DL (32.0-36.0) Red Cell Distribution Width 16.6 % (11.6-14.8) H Platelet Count 227 K/UL (150-450) Mean Platelet Volume 7.2 FL (6.5-10.1) Neutrophils (%) (Auto) 64.5 % (45.0-75.0) Lymphocytes (%) (Auto) 27.9 % (20.0-45.0) Monocytes (%) (Auto) 6.5 % (1.0-10.0) Eosinophils (%) (Auto) 0.5 % (0.0-3.0) Basophils (%) (Auto) 0.6 % (0.0-2.0) Sodium Level 140 MMOL/L (136-145) Potassium Level 4.0 MMOL/L (3.5-5.1) Chloride Level 109 MMOL/L (98-107) H Carbon Dioxide Level 28 MMOL/L (21-32) Anion Gap 3 mmol/L (5-15) L Blood Urea Nitrogen 16 mg/dL (7-18) Creatinine 1.0 MG/DL (0.55-1.30) Estimat Glomerular Filtration Rate > 60 mL/min (>60) Glucose Level 120 MG/DL (74-106) H Hemoglobin A1c 7.0 % (4.3-6.0) H Calcium Level 7.8 MG/DL (8.5-10.1) L Magnesium Level 1.9 MG/DL (1.8-2.4) Total Bilirubin 0.3 MG/DL (0.2-1.0) Aspartate Amino Transf (AST/SGOT) 68 U/L (15-37) H Alanine Aminotransferase (ALT/SGPT) 106 U/L (12-78) H Alkaline Phosphatase 96 U/L (46-116) Total Protein 6.0 G/DL (6.4-8.2) L Albumin 1.8 G/DL (3.4-5.0) L Globulin 4.2 g/dL Albumin/Globulin Ratio 0.4 (1.0-2.7) L Triglycerides Level 138 MG/DL (30-150) Cholesterol Level 124 MG/DL (< 200) LDL Cholesterol 72 mg/dL (<100) HDL Cholesterol 36 MG/DL (40-60) L Cholesterol/HDL Ratio 3.4 (3.3-4.4) Microbiology Date/Time Source Procedure Growth Status 07/14/17 02:35 Urine,Clean Catch Urine Culture - Preliminary Gram Negative Bacillus 1 Resulted BROOK PARKER Jul 15, 2017 14:09
[2017-07-15] MEDS ORDERED: HYDRALAZINE HCL25 M1 ORAL (14:24)
[2017-07-15] MEDS ORDERED: FUROSEMIDE20 M1 ORAL (14:25)
[2017-07-15] MEDS ORDERED: CEPHALEXIN500 MG ORAL (14:27)
[2017-07-15] MEDS ORDERED: AZITHROMYCIN250 MG ORAL (14:28)
[2017-07-15] MEDS ORDERED: HydrALAZINE 25mg tab ORAL SCH (15:00)
--- NOTE | 2017-07-15 15:15 | Cardiology Report ---
APPROVED REPORT EKG Measurement Heart [id number] Normal sinus rhythm T wave abnormality, consider inferior ischemia T wave abnormality, consider anterior ischemia Prolonged QT Abnormal ECG
[2017-07-15 16:00] VITALS: BP 136/90
[2017-07-15] MEDS ORDERED: NS 275ml ONE (16:29)
[2017-07-15] MEDS ORDERED: Tubing IV Secondary IV ONE (16:29)
[2017-07-15] MEDS ORDERED: Labetalol 200mg tab ORAL SCH (21:00)
--- NOTE | 2017-07-16 09:30 | Consultation ---
DATE OF CONSULTATION: 07/14/2017 CARDIOLOGY CONSULTATION CONSULTING PHYSICIAN: Clifford Matthews M.D. REFERRING PHYSICIAN: Ankita Rosas M.D. REASON FOR REFERRAL: hypertension. HISTORY OF PRESENT ILLNESS: This is a 42-year-old female, who has had six deliveries, the last one approximately 10 days ago at [facility]. She has history of hypertension, pre-existing, over the past couple of deliveries, but her blood pressure has not been significantly elevated, although she was taking medications prior to her present , apparently became elevated significantly. Prior to her delivery, preeclampsia was diagnosed. The patient was even told that she had some congestive heart failure, was treated at [place], was discharged apparently, and presents because of elevated blood pressure again here to [facility]. Her original admission here was for irregular heart rhythm, which was worse when she was laying down on her left side. She does not have any chest pain. No shortness of breath. No palpitation. No dizziness or lightheadedness. On standing, she was told to take diuretics for possible congestive heart failure postoperatively and she felt that it was not working because she was not peeing enough. Anyway, she presented to [facility]. Blood pressure initially was 150/90, but has had levels in the diastolic of more than 100 currently and she has been admitted to the hospital. I was asked to see her to help with management of her hypertension. She does not have any PND or orthopnea. PAST MEDICAL HISTORY: Positive for high blood pressure. She has history of cardiomyopathy. She denies any diabetes or high cholesterol. No heart attack. No cancer. No stroke. No hepatitis or tuberculosis. No asthma. No emphysema. No ulcers. No kidney problems, liver problems, thyroid problems, anemia, HIV, AIDS, or blood clots. ALLERGIES: She is not allergic to any medication. SOCIAL HISTORY: She does not smoke or drink at this time, although she previously has. No drug use. REVIEW OF SYSTEMS: GASTROINTESTINAL: Negative. GENITOURINARY: Negative. PULMONARY: Some coughing and upper respiratory tract infection symptoms recently and has hoarseness. NEUROLOGIC: Negative, although she indicates she has not been feeling good, but no paralysis or numbness. PHYSICAL EXAMINATION: GENERAL: Shows her to be obese female, in no respiratory distress, somewhat hoarse in her voice. LUNGS: Clear to auscultation and percussion. CARDIAC: S1 is normal. S2 is normal. Regular rate and rhythm. No heaves or thrills. ABDOMEN: Soft and nontender. Positive bowel sounds. EXTREMITIES: There is no clubbing, cyanosis, nor is there any edema. NEUROLOGICAL: She is awake, alert, responsive, and in no apparent respiratory distress. LABORATORY AND DIAGNOSTIC DATA: Blood tests during this hospitalization, white count of 5.1, hemoglobin 12.2, and platelet count 208,000. Sodium is 139, potassium 3.5, chloride 106, bicarbonate 27, BUN of 17, creatinine 1.0, glucose of 132, and calcium is 7.8. AST of only 86 and ALT of 125. Bilirubin is 0.2. Troponin on two occasions are negative. ProBNP of 1300 with total protein of 6.1 and albumin of 1.8. TSH is 0.89. Urinalysis shows 60 to 80 WBCs, too numerous to count RBC, 2+ leukocyte esterase, 5+ occult blood, and 4+ protein. Her telemetry shows sinus. Her EKG shows sinus rhythm with T-wave inversions in III and aVF as well as biphasic T-waves in V5 and V6 and in direct comparison with her prior EKGs, unfortunately I am unable to pull down the old EKGs to review, although reports indicated sinus rhythm and nonspecific T-wave abnormality back in 2015 on two separate hospitalizations, but direct comparison is not possible. An echocardiogram performed back in 2014 had shown an ejection fraction of 30% to 35%, although according to the patient that apparently improved or resolved. At that time, she had moderate mitral regurgitation as well. ASSESSMENT AND PLAN: 1. Eclampsia. 2. Hypertension. 3. Proteinuria. 4. Possible urinary tract infection. 5. Upper respiratory tract infection. 6. History of cardiomyopathy that reportedly resolved. 7. Mildly abnormal liver function tests. The patient's was seen in cardiac consultation. The patient's blood pressure is better controlled with the administration of labetalol that she has been getting here in the hospital. She should be taken off any ibuprofen. She does have peripheral edema, to which she should respond with diuretics. She is and that needs to be kept in mind with possible usage of medications. Procardia, hydralazine, or labetalol seemed to be safe at the time of , although she did receive labetalol 200 mg and her blood pressure did significantly drop. She may not need to be on medications for very long unless she does have cardiomyopathy, so an echocardiogram is prudent to be performed to see if there is evidence of cardiomyopathy at this time to adjust her medications accordingly. In addition, of note, she does have abnormality of liver function tests, but no evidence of microangiopathic hemolytic anemia. Platelet counts appear to be normal and bilirubin appears to be normal and liver function tests are not severely enlarged. Clifford Matthews M.D. DR: Joselyn JOB#: [id number] CC:
--- NOTE | 2017-07-16 16:23 | Discharge Summary ---
Discharge Summary Hospital Course Date of Admission Jul 14, 2017 at 04:18 Date of Discharge Jul 15, 2017 at 16:30 Admitting Diagnosis CHF, HTN Reason for Hospitalization: CHF HPI 42y/o female with pmh of HTN, pre-eclampsia, recent abt 10 days ago at [place] who presents with SOB, BLE swelling, palpitations. Pt states she was diagnosed w/ preeclampsia prior to her deliver. She said after delivery she had worsening of BPs, leg swelling, SOB. She was diagnosed w/ CHF. She was recently at outside hospital and was treated with diuretics and discharged. Pt cont to c/ o worsening b/l leg swelling, SOB, palpitations. Denies chest pain, f/c, n/v, d/ c, abd pain, dysuria. She has been on lasix every other day but feels it is not working. Denies PND, orthopnea. Consultations Cardiology, Infectious disease Hospital Course Pt was admitted to [facility]. She was ruled out for ACS with serial trop/EKG. She was diuresed w/ lasix IV. TTE showed EF 20-25%. Pt was seen by cardiology and medications optimized. Labetolol was d/c'd and hydralazine started. Given she is lactating cannot start on ACEI/ARB, coreg, nitrates yet. Once fluid status improved, she was switched to lasix PO on d/c. Pt also w/ E. Coli UTI and was placed on ceftriaxone. Also w/ concern for acute ronchitis, so was placed on azithro. On d/c she was transitioned to course of keflex and azithro to complete course. CHF education provided. Pt to follow-up closely with PCP and cardiology as an outpatient. Discharge diagnoses General: alert, cooperative, no distress, appears stated age Head: normocephalic, without obvious abnormality, atraumatic Eyes: conjunctivae/corneas clear. PERRL, EOM's intact Throat: lips, mucosa, and tongue normal. MMM Neck: supple, symmetrical, trachea midline, and no JVD Lungs: clear to auscultation bilaterally Heart: regular rate and rhythm, S1, S2 normal, no murmur, click, rub or gallop Abdomen: soft, non-tender, non-distended, bowel sounds normal; no masses or organomegaly Extremities: extremities normal, atraumatic, no cyanosis, 1+ BLE edema Pulses: 2+ and symmetric Skin: skin color, texture, turgor normal; no rashes or lesions Neurologic: grossly normal, no focal deficits Discharge Medications New Medications: Azithromycin* (Zithromax*) 250 Mg Tablet 250 MG ORAL DAILY for 4 Days, #4 TAB Cephalexin* (Keflex*) 500 Mg Capsule 500 MG ORAL EVERY 6 HOURS for 7 Days, #28 CAP Furosemide* (Lasix*) 20 Mg Tablet 20 MG ORAL DAILY for 30 Days, #30 TAB 0 Refills Hydralazine Hcl* (Hydralazine Hcl*) 25 Mg Tablet 25 MG ORAL Q6HR for 30 Days, #120 TAB 0 Refills Continued Medications: Albuterol Sulfate* (Albuterol Sulfate Mdi*) 8.5 Gm Hfa.aer.ad 2 PUFF INH Q4H PRN for Shortness of Breath, #1 EA Albuterol Sulfate* (Albuterol Sulfate Mdi*) 8.5 Gm Hfa.aer.ad 2 PUFF INH Q6H PRN for Shortness of Breath, #1 INH 0 Refills Albuterol Sulfate* (Proair Hfa*) 8.5 Gm Hfa.aer.ad Docusate Sodium (Stool Softener) 50 Mg Capsule Unknown Dose PO, CAP Ferrous Sulfate* (Ferrous Sulfate*) 325 Mg Tablet 325 MG PO DAILY Hydrocodone Bit/Acetaminophen 5-325* ([place] 5-325*) 1 Each Tablet 1 TAB ORAL Q6H PRN for For Pain, #10 TAB Ibuprofen (Ibuprofen) 200 Mg Tablet Unknown Dose PO, TAB Montelukast Sodium* (Singulair*) 10 Mg Tablet 10 MG ORAL DAILY, #20 TAB Montelukast Sodium* (Singulair*) 10 Mg Tablet Unknown Dose ORAL DAILY, TAB Vit/Iron Fumarate/Fa ( Vitamins Tablet) 1 Each Tablet 1 TAB PO DAILY Discontinued Medications: Azithromycin* (Zithromax*) 250 Mg Tablet 250 MG ORAL DAILY, #6 TAB Furosemide* (Lasix*) 20 Mg Tablet 20 MG ORAL 3XW, TAB Labetalol Hcl* (Normodyne*) 200 Mg Tablet 200 MG PO BID Prednisone* (Prednisone*) 20 Mg Tablet 40 MG ORAL DAILY for 4 Days, TAB Discharge Condition Upon Discharge: stable Discharge Disposition Patient was discharged to Home (01) Discharge Diagnoses: (1) cardiomyopathy (2) Acute systolic (congestive) heart failure (3) HTN (hypertension) (4) Preeclampsia (5) Acute bronchitis Brea Felix M.D. Jul 16, 2017 16:23
== END 2017-07-15 16:30 | disposition home or self-care (01) | DRG 566 ==
LOC: EMR 03:36 → MERGE 04:18 → 2E 04:18 → EDBEDREQ 04:57 → SDSOVERFLO 10:40 → 2E 10:42
DX: O99.89 Other specified diseases and conditions complicating pregnancy, childbirth and the puerperium (principal); I50.21 Acute systolic (congestive) heart failure; O90.3 Peripartum cardiomyopathy; O11.5 Pre-existing hypertension with pre-eclampsia, complicating the puerperium; O86.89 Other specified puerperal infections; Z68.42 Body mass index [BMI] 45.0-49.9, adult; N39.0 Urinary tract infection, site not specified; O99.215 Obesity complicating the puerperium; E66.9 Obesity, unspecified; R31.9 Hematuria, unspecified; J20.9 Acute bronchitis, unspecified
CPT/HCPCS: 36415; 72193; 80053; 80061; 80076; 81003; 83036; 83690; 83735; 83880; 84443; 84484; 85025; 87040; 87086; 87181; 93005; 93306; 94640; 99285; J7620; J8499